=== PATIENT | female | born 1995 | race Caucasian/White ===

== ENCOUNTER 2023-05-21 07:23 | Emergency (ER) | payer OTHER, SELFPAY ==
[2023-05-21] VITALS (9 sets, daily range): BP systolic 88–117; BP diastolic 46–75; PULSE 78–114; RESP 8–18; TEMP 37.1; O2SAT 96–97; BMI 24.2
--- NOTE | 2023-05-21 07:51 | CRLHL7_ITS ---
For Patients: As a result of the Century Cures Act, medical imaging exams and procedure reports are released immediately into your electronic medical record. You may view this report before your referring provider. If you have questions, please contact your health care provider. INDICATION: Right upper quadrant pain and nausea COMPARISON: None. TECHNIQUE: Evans-scale and color ultrasound of the right upper quadrant to include the liver, gallbladder (or gallbladder fossa), biliary tree, pancreatic head, and right kidney. FINDINGS: Liver: Normal hepatic echogenicity and normal echotexture. No mass. Patent portal vein with normal directional flow. Gallbladder: Normal. Distention: Normal. Wall: Normal thickness. Stones: None. Sludge: None. Pericholecystic inflammation/fluid: None. Sonographic Hogan`s sign: Negative. Bile ducts: Not dilated. The common bile duct measures 3 mm. Pancreatic head: Normal. Right Kidney: Renal length: 10.7 cm Parenchyma: Normal thickness and normal echogenicity. Cyst: None Mass: None Calculi: None Urinary tract: Not dilated. RUQ Ascites: None. The upper abdominal aorta: Normal. Upper abdominal/intrahepatic IVC: Normal. IMPRESSION: Normal RUQ ultrasound. Dictated by Sherry Elmore MD @ 05/21/2023 8:26:28 AM (Electronically Signed)
--- NOTE | 2023-05-21 07:53 | ED_ITS ---
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 Initially pain was more crampy and colicky but now has become more constant. She vomited initially about 15 hours ago, has been unable to hold down any liquids since. Rating her pain 9/10. No prior history of similar symptoms. Pain is in the right upper quadrant, under the ribs, radiating now to the back lower ribs. No dysuria, no fever. No trauma or injury. No prior history of abdominal surgeries. Compliant with her oral contraceptive pill, menses are irregular on this. She had a negative test 2 days ago. No bloody stools or emesis. No gynecological changes. She is a bit worried of out of network costs as her insurance is through the [employer] system. Past medical history she states is benign, no major long-term health problems. Only home medication is an oral contraceptive. No history of bleeding or blood clotting disorders. No prior abdominal surgeries. ROS is notable for the abdominal symptoms as described above, otherwise denies times 12 systems. <Meseret Gonzalez MD - Last Filed: 05/30/23 00:02> Related Data Home Medications: Home Medications Medication Instructions Recorded Confirmed cotroll 1 tab PO DAILY 05/21/23 05/21/23 Previous Rx's Medication Instructions Recorded ondansetron 4 mg disintegrating 4 mg PO Q4-6H PRN nausea/vomiting 05/21/23 tablet #12 tabs <Meseret Gonzalez MD - Last Filed: 05/30/23 00:02> Allergies/Adverse Reactions: Allergies Allergy/AdvReac Type Severity Reaction Status Date / Time sulfamethoxazole Allergy Mild rash Verified 05/21/23 09:39 [From Bactrim] trimethoprim [From Bactrim] Allergy Mild rash Verified 05/21/23 09:39 <Meseret Gonzalez MD - Last Filed: 05/30/23 00:02> PFSH PFSH Social History: Social History Smoking Status: Never smoker Do you use any of these nicotine containing products: None How often do you have a drink containing alcohol: never AUDIT-C Alcohol total score: 0 <Meseret Gonzalez MD - Last Filed: 05/30/23 00:02> Exam Const: Vital Signs, click to edit/add: Vital Signs - 24 hr 05/21/23 07:27 05/21/23 08:19 05/21/23 12:00 Temperature 98.8 F Pulse Rate [Right Pulse Oximeter] 114 H 83 89 Respiratory Rate 18 8 L 18 Blood Pressure [Ri ght Upper Arm] 117/75 110/57 L Pulse Oximetry 97 96 96 Oxygen Delivery Me thod Room Air Room Air Room Air <Meseret Gonzalez MD - Last Filed: 05/30/23 00:02> Vital Signs, click to edit/add: Vital Signs - 24 hr 05/21/23 07:27 05/21/23 08:19 05/21/23 12:00 Temperature 98.8 F Pulse Rate [Right Pulse Oximeter] 114 H 83 89 Respiratory Rate 18 8 L 18 Blood Pressure [Ri ght Upper Arm] 117/75 110/57 L Pulse Oximetry 97 96 96 Oxygen Delivery Me thod Room Air Room Air Room Air <Lenin Mcbride MD - Last Filed: 05/30/23 01:26> Documenting provider has reviewed patient's vital signs: yes <Meseret Gonzalez MD - Last Filed: 05/30/23 00:02> Common normals: no apparent distress and alert <Meseret Gonzalez MD - Last Filed: 05/30/23 00:02> General appearance: cooperative and well kempt <MD Janeth Corral Last Filed: 05/30/23 00:02> Other: Appears uncomfortable due to pain. Very polite. With her background, obviously she is quite helpful and answering questions and helping form differential diagnosis. <MD Janeth Corral Last Filed: 05/30/23 00:02> HENMT: Common normals: normocephalic <MD Janeth Corral Last Filed: 05/30/23 00:02> Head and scalp: normocephalic <MD Janeth Corral Last Filed: 05/30/23 00:02> Face and sinus: normal facial exam <MD Janeth Corral Last Filed: 05/30/23 00:02> Mouth: oral and palatal mucosa normal <MD Janeth Corral Last Filed: 05/30/23 00:02> Throat: posterior oropharynx normal <MD Janeth Corral Last Filed: 05/30/23 00:02> Eye: Common normals: conjunctivae normal <MD Janeth Corral Last Filed: 05/30/23 00:02> General eye: normal appearance of both eyes <MD Janeth Corral Last Filed: 05/30/23 00:02> Conjunctiva: conjunctiva(e) normal <MD Janeth Corral Last Filed: 05/30/23 00:02> Neck & C-Spine: Common normals: full ROM and no lymphadenopathy <MD Janeth Corral Last Filed: 05/30/23 00:02> Resp: Common normals: normal respiratory effort and no use of accessory muscle s <MD Janeth Corral Last Filed: 05/30/23 00:02> Effort & inspection: able to speak in complete sentences <MD Janeth Corral Last Filed: 05/30/23 00:02> Cardio: Common normals: regular rate, regular rhythm, S1 normal heart sound, S2 normal heart sound and no murmurs <MD Janeth Corral Last Filed: 05/30/23 00:02> Rate: regular rate <MD Janeth Corral Last Filed: 05/30/23 00:02> Rhythm: regular rhythm <MD Janeth Corral Last Filed: 05/30/23 00:02> Heart sounds: S1 normal and S2 normal <MD Janeth Corral Last Filed: 05/30/23 00:02> GI: Common normals: Normal to inspection, nondistended, normoactive bowel sounds present, no hepatosplenomegaly and no masses <MD Janeth Corral Last Filed: 05/30/23 00:02> Palpation: no hepatosplenomegaly <MD Janeth Corral Last Filed: 05/30/23 00:02> Other: Exquisitely tender to right upper quadrant with even some mild rebound tenderness and guarding. Some slight peritoneal signs in the remainder of the abdomen as well. <MD Janeth Corral Last Filed: 05/30/23 00:02> Extremity: Common normals: normal to inspection <MD Janeth Corral Last Filed: 05/30/23 00:02> Neuro: Sensorium/orientation: alert <MD Janeth Corral Last Filed: 05/30/23 00:02> Speech: speech normal <MD Janeth Corral Last Filed: 05/30/23 00:02> Motor exam: no tremor noted and no movement abnormalities noted <MD Janeth Corral Last Filed: 05/30/23 00:02> Psych: Common normals: thought process normal and speech normal <MD Janeth Corral Last Filed: 05/30/23 00:02> Appearance: well kempt <MD Janeth Corral Last Filed: 05/30/23 00:02> Attitude: engaged <MD Janeth Corral Last Filed: 05/30/23 00:02> Activity/motor behavior: appropriate eye contact <MD Janeth Corral Last Filed: 05/30/23 00:02> Speech: normal speech <Meseret Gonzalez MD - Last Filed: 05/30/23 00:02> Thought process: normal thought process <Meseret Gonzalez MD - Last Filed: 05/30/23 00:02> Insight: insight good <Meseret Gonzalez MD - Last Filed: 05/30/23 00:02> Judgement: judgment good <Meseret Gonzalez MD - Last Filed: 05/30/23 00:02> Skin: Common normals: no rashes or lesions noted <Meseret Gonzalez MD - Last Filed: 05/30/23 00:02> General skin exam: no rashes or lesions noted <Meseret Gonzalez MD - Last Filed: 05/30/23 00:02> Course Course ED Course: Healthy female with abdominal pain suspicious for cholecystitis. CT exclude choledocholithiasis, biliary dyskinesia, gastritis, gastroenteritis, pancreatitis, among others. No initial signs of sepsis. She does appear to be in a fair amount of pain. I recommend placing an IV, 0.5 mg of Dilaudid, 4 mg of Zofran. Right upper quadrant ultrasound. Basic labs including lipase, comprehensive metabolic panel, CBC, CRP. Suspecting cholecystitis most likely. Will likely need surgical consult pending ultrasound findings. Will be handing over care to my in coming day shift partner. <Meseret Gonzalez MD - Last Filed: 05/30/23 00:02> Vital Signs Vital signs: Initial Vital Signs Temperature 98.8 F 05/21/23 07:27 Temperature Source Temporal Artery Scan 05/21/23 07:27 Pulse Rate 114 H 05/21/23 07:27 Respiratory Rate 18 05/21/23 07:27 Blood Pressure 117/75 05/21/23 07:27 Blood Pressure Mean 89 05/21/23 07:27 Blood Pressure Position Sitting 05/21/23 07:27 Pulse Oximetry 97 05/21/23 07:27 Oxygen Delivery Method Room Air 05/21/23 07:27 Vital Signs Temperature 98.8 F 05/21/23 07:27 Pulse Rate 114 H 05/21/23 07:27 Respiratory Rate 18 05/21/23 07:27 Blood Pressure 117/75 05/21/23 07:27 Pulse Oximetry 97 05/21/23 07:27 Oxygen Delivery Method Room Air 05/21/23 07:27 Temperature 98.8 F 05/21/23 07:27 Pulse Rate 78 05/21/23 15:00 Respiratory Rate 16 05/21/23 15:00 Blood Pressure 102/46 L 05/21/23 15:00 Pulse Oximetry 96 05/21/23 15:00 Oxygen Delivery Method Room Air 05/21/23 15:00 <Meseret Gonzalez MD - Last Filed: 05/30/23 00:02> Initial Vital Signs Temperature 98.8 F 05/21/23 07:27 Temperature Source Temporal Artery Scan 05/21/23 07:27 Pulse Rate 114 H 05/21/23 07:27 Respiratory Rate 18 05/21/23 07:27 Blood Pressure 117/75 05/21/23 07:27 Blood Pressure Mean 89 05/21/23 07:27 Blood Pressure Position Sitting 05/21/23 07:27 Pulse Oximetry 97 05/21/23 07:27 Oxygen Delivery Method Room Air 05/21/23 07:27 Vital Signs Temperature 98.8 F 05/21/23 07:27 Pulse Rate 114 H 05/21/23 07:27 Respiratory Rate 18 05/21/23 07:27 Blood Pressure 117/75 05/21/23 07:27 Pulse Oximetry 97 05/21/23 07:27 Oxygen Delivery Method Room Air 05/21/23 07:27 Temperature 98.8 F 05/21/23 07:27 Pulse Rate 78 05/21/23 15:00 Respiratory Rate 16 05/21/23 15:00 Blood Pressure 102/46 L 05/21/23 15:00 Pulse Oximetry 96 05/21/23 15:00 Oxygen Delivery Method Room Air 05/21/23 15:00 <Lenin Mcbride MD - Last Filed: 05/30/23 01:26> Medications Administered Medications: Discontinued Medications Generic Name Dose Route Start Last Admin Trade Name Anthony PRN Reason Stop Dose Admin Fentanyl 50 mcg 05/21/23 11:53 05/21/23 12:08 Fentanyl 100 Mcg/2 Ml Inj IVP 05/21/23 11:54 50 mcg ONCE ONE Administration Hydromorphone HCl 0.5 mg 05/21/23 07:51 05/21/23 08:03 Hydromorphone 0.5 Mg/0.5 Ml Inj IVP 05/21/23 07:52 0.5 mg ONCE ONE Administration Hydromorphone HCl 0.5 mg 05/21/23 08:44 05/21/23 08:48 Hydromorphone 0.5 Mg/0.5 Ml Inj IVP 05/21/23 08:45 0.5 mg ONCE ONE Administration Hyoscyamine 0.25 mg 05/21/23 11:53 05/21/23 12:08 Hyoscyamine Sulfate 0.125 Mg Tab SUBLINGUAL 05/21/23 11:54 0.25 mg ONCE ONE Administration Sodium Chloride 1,000 mls @ 1,000 mls/hr 05/21/23 07:40 05/21/23 08:49 0.9 % Sodium Chloride 1000 Ml IV 05/21/23 08:39 Infused .Q1H DICK Infusion Sodium Chloride 1,000 mls @ 1,000 mls/hr 05/21/23 13:22 05/21/23 14:40 0.9 % Sodium Chloride 1000 Ml IV 05/21/23 14:21 Infused .Q1H ONE Infusion Ketorolac Tromethamine 30 mg 05/21/23 12:29 05/21/23 12:54 Ketorolac 30 Mg/Ml Inj IVP 05/21/23 12:30 30 mg ONCE ONE Administration Lidocaine HCl 7.5 ml 05/21/23 10:55 05/21/23 11:27 Lidocaine Hcl 4 % Top Soln 50 Ml Bottle PO 05/21/23 10:56 7.5 ml ONCE ONE Administration Lidocaine/Aluminum/Magnesium/Simeth 30 ml 05/21/23 10:55 05/21/23 11:26 Mag Hydrox/Aluminum Hyd/Simeth 30 Ml Oral.Susp PO 05/21/23 10:56 30 ml ONCE ONE Administration Ondansetron HCl 4 mg 05/21/23 07:38 05/21/23 08:01 Ondansetron 2 Mg/Ml Inj IVP 05/21/23 07:39 4 mg ONCE ONE Administration <Meseret Gonzalez MD - Last Filed: 05/30/23 00:02> Discontinued Medications Generic Name Dose Route Start Last Admin Trade Name Freq PRN Reason Stop Dose Admin Fentanyl 50 mcg 05/21/23 11:53 05/21/23 12:08 Fentanyl 100 Mcg/2 Ml Inj IVP 05/21/23 11:54 50 mcg ONCE ONE Administration Hydromorphone HCl 0.5 mg 05/21/23 07:51 05/21/23 08:03 Hydromorphone 0.5 Mg/0.5 Ml Inj IVP 05/21/23 07:52 0.5 mg ONCE ONE Administration Hydromorphone HCl 0.5 mg 05/21/23 08:44 05/21/23 08:48 Hydromorphone 0.5 Mg/0.5 Ml Inj IVP 05/21/23 08:45 0.5 mg ONCE ONE Administration Hyoscyamine 0.25 mg 05/21/23 11:53 05/21/23 12:08 Hyoscyamine Sulfate 0.125 Mg Tab SUBLINGUAL 05/21/23 11:54 0.25 mg ONCE ONE Administration Sodium Chloride 1,000 mls @ 1,000 mls/hr 05/21/23 07:40 05/21/23 08:49 0.9 % Sodium Chloride 1000 Ml IV 05/21/23 08:39 Infused .Q1H DICK Infusion Sodium Chloride 1,000 mls @ 1,000 mls/hr 05/21/23 13:22 05/21/23 14:40 0.9 % Sodium Chloride 1000 Ml IV 05/21/23 14:21 Infused .Q1H ONE Infusion Ketorolac Tromethamine 30 mg 05/21/23 12:29 05/21/23 12:54 Ketorolac 30 Mg/Ml Inj IVP 05/21/23 12:30 30 mg ONCE ONE Administration Lidocaine HCl 7.5 ml 05/21/23 10:55 05/21/23 11:27 Lidocaine Hcl 4 % Top Soln 50 Ml Bottle PO 05/21/23 10:56 7.5 ml ONCE ONE Administration Lidocaine/Aluminum/Magnesium/Simeth 30 ml 05/21/23 10:55 05/21/23 11:26 Mag Hydrox/Aluminum Hyd/Simeth 30 Ml Oral.Susp PO 05/21/23 10:56 30 ml ONCE ONE Administration Ondansetron HCl 4 mg 05/21/23 07:38 05/21/23 08:01 Ondansetron 2 Mg/Ml Inj IVP 05/21/23 07:39 4 mg ONCE ONE Administration <Lenin Mcbride MD - Last Filed: 05/30/23 01:26> MDM - Abdominal Pain Medical Records Medical records narrative: Rae -- I inherited this patient at change of shift. Presenting to the emergency department complaint of epigastric pain. Limited right upper quadrant ultrasound had just been noted to be unremarkable. She had due to intensity of pain then been ordered for IV contrasted CT scan of the abdomen and pelvis. Some labs also pending CT head not yet been done. Received Zofran and Dilaudid. I went to assess in anticipation of CT scan due to escalation of pa in. Initial dosing of Dilaudid had been temporarily helpful. Given other dosing of Dilaudid. Labs are essentially normal other than elevated CRP is 6.2. Normal lipase. Normal transaminases. I did review CT imaging of the abdomen and pelvis. Thought maybe some thickening of the stomach wall in general though radiology over-read noted essentially unremarkable imaging other than a 3.5 cm right adnexal/ovarian cyst. With continued pain and normal CT imaging did try a GI cocktail. This may have made things worse. Is having pain into her back and reproducible epigastric and near right upper quadrant pain. I wonder if esophageal spasm might be related. We had discussed trial of hyoscyamine or nitro. Did ultimately give hyoscyamine and a dosing of fentanyl hoping to relax all of this. Only minor early improved on reassessment. She clearly has more pain with any movement. Worse when she is lying back and of course any transitions. Upon walking she does find herself hunching forward to lessen discomfort. Perhaps pericarditis involved?. Did not have any prodrome of gastrointestinal issues prior to all of this and was feeling fine when she went to bed last night. Recalls that with vomiting did have increase in pain. One wonders about pneumothorax or pneumomediastinum as well. Pneumomediastinum was not evident on abdominal CT imaging. Will do a dedicated one-view chest x-ray and trial of ketorolac if this is more inflammatory related pain like in the setting of pericarditis. Will also check EKG and cardiac labs as add ons. With these latter differential considerations, reproduction of pain on palpation of the epigastrium is perhaps a little puzzling. Chest x-ray by my read looks to be WNL. Normal cardiac silhouette and without pneumothorax or infiltrate. Normal mediastinum. Did request EKG. Review as below. Looks normal. Ordered with consideration of pericarditis. Normal cardiac labs. Colleague was able to place bedside ultrasound. Noting normal cardiac activity without any evidence of effusion. Upon reassessment after ketorolac, really seems to have improved. Finally appears more comfortable. See patient discharge plan <Lenin Mcbride MD - Last Filed: 05/30/23 01:26> Lab Data Attestation: I reviewed the patient's lab results. <Lenin Mcbride MD - Last Filed: 05/30/23 01:26> Labs: Lab Results 05/21/23 05/21/23 05/21/23 Range/Units 07:55 13:19 15:00 WBC 5.29 (4.50-11.00) K/uL RBC 4.72 (4.00-5.20) m/uL Hgb 13.9 (12.0-16.0) gm/dL Hct 40.4 (33.0-51.0) % MCV 86 (80-100) fL MCH 29 (26-34) pg MCHC 34 (32-36) gm/dL RDW Coeff of Elisabeth 11.8 (11.5-15.5) % Plt Count 246 (140-440) K/uL Neut % (Auto) 75.1 H (42.0-72.0) % Lymph % (Auto) 18.5 L (20-44) % [place] % (Auto) 5.3 (0.0-11.0) % Eos % (Auto) 0.9 (0.0-7.0) % Baso % (Auto) 0.2 (0.0-3.0) % Neut # (Auto) 4.00 (1.7-7.0) K/uL Lymph # (Auto) 1.00 (0.90-2.90) K/uL [place] # (Auto) 0.30 (0.00-0.90) K/UL Eos # (Auto) 0.05 (0.00-0.50) K/uL Baso # (Auto) 0.01 (0.00-0.30) K/uL Abs Immat Gran (auto) 0.00 (0.00-0.30) K/uL Imm/Tot Granulo (auto) 0.0 % D-Dimer Quant (PE/DVT) 0.67 H (0.00-0.50) ug/ml Sodium 134 L (135-149) mmol/L Potassium 3.2 L (3.6-5.1) mmol/L Chloride 106 (96-114) mmol/L Carbon Dioxide 19 L (20-32) mmol/L Anion Gap 9 (7-15) mEq/L BUN 9 (5-24) mg/dL Creatinine 0.6 (0.5-1.5) mg/dL Estimated Creat Clear 130.68 Estimated GFR 125 ml/min Glucose 97 (60-115) mg/dL Calcium 8.7 (8.4-10.6) mg/dL Total Bilirubin 0.6 (0.1-1.5) mg/dL AST 24 (12-35) U/L ALT 18 (4-35) U/L Alkaline Phosphatase 56 (40-150) U/L Troponin I < 0.01 L (0.01-0.04) ng/mL C-Reactive Protein 6.2 H (0.5-1.0) mg/dL NT-Pro-B Natriuret Pep 86 pg/mL Total Protein 6.1 (6.0-8.3) g/dL Albumin 3.7 (3.3-5.0) g/dL Lipase 34 (23-300) U/L HCG, Qual Negative (Negative) Urine Color Yellow (Yellow) Urine Appearance Slightly Cloudy A (Clear) Urine pH 5.5 (5.0-8.5) Ur Specific [place] 1.010 (1.000-1.030) Urine Protein Negative (Negative) Urine Glucose (UA) Negative (Negative) Urine Ketones 4+ A (Negative) Urine Blood Negative (Negative) Urine Nitrite Negative (Negative) Urine Bilirubin 1+ A (Negative) Urine Urobilinogen 0.2 (0.2-1.0) Ur Leukocyte Esterase Negative (Negative) Urine RBC 0-2 (0-2) Urine WBC 2-5 (0-5) Urine WBC Clumps None (None) Ur Squamous Epith Cells Few (None-Few) Urine Bacteria Few A (None) Lab Acknowledgement Test Added <Meseret Gonzalez MD - Last Filed: 05/30/23 00:02> Lab Results 05/21/23 05/21/23 05/21/23 Range/Units 07:55 13:19 15:00 WBC 5.29 (4.50-11.00) K/uL RBC 4.72 (4.00-5.20) m/uL Hgb 13.9 (12.0-16.0) gm/dL Hct 40.4 (33.0-51.0) % MCV 86 (80-100) fL MCH 29 (26-34) pg MCHC 34 (32-36) gm/dL RDW Coeff of Elisabeth 11.8 (11.5-15.5) % Plt Count 246 (140-440) K/uL Neut % (Auto) 75.1 H (42.0-72.0) % Lymph % (Auto) 18.5 L (20-44) % [place] % (Auto) 5.3 (0.0-11.0) % Eos % (Auto) 0.9 (0.0-7.0) % Baso % (Auto) 0.2 (0.0-3.0) % Neut # (Auto) 4.00 (1.7-7.0) K/uL Lymph # (Auto) 1.00 (0.90-2.90) K/uL [place] # (Auto) 0.30 (0.00-0.90) K/UL Eos # (Auto) 0.05 (0.00-0.50) K/uL Baso # (Auto) 0.01 (0.00-0.30) K/uL Abs Immat Gran (auto) 0.00 (0.00-0.30) K/uL Imm/Tot Granulo (auto) 0.0 % D-Dimer Quant (PE/DVT) 0.67 H (0.00-0.50) ug/ml Sodium 134 L (135-149) mmol/L Potassium 3.2 L (3.6-5.1) mmol/L Chloride 106 (96-114) mmol/L Carbon Dioxide 19 L (20-32) mmol/L Anion Gap 9 (7-15) mEq/L BUN 9 (5-24) mg/dL Creatinine 0.6 (0.5-1.5) mg/dL Estimated Creat Clear 130.68 Estimated GFR 125 ml/min Glucose 97 (60-115) mg/dL Calcium 8.7 (8.4-10.6) mg/dL Total Bilirubin 0.6 (0.1-1.5) mg/dL AST 24 (12-35) U/L ALT 18 (4-35) U/L Alkaline Phosphatase 56 (40-150) U/L Troponin I < 0.01 L (0.01-0.04) ng/mL C-Reactive Protein 6.2 H (0.5-1.0) mg/dL NT-Pro-B Natriuret Pep 86 pg/mL Total Protein 6.1 (6.0-8.3) g/dL Albumin 3.7 (3.3-5.0) g/dL Lipase 34 (23-300) U/L HCG, Qual Negative (Negative) Urine Color Yellow (Yellow) Urine Appearance Slightly Cloudy A (Clear) Urine pH 5.5 (5.0-8.5) Ur Specific [place] 1.010 (1.000-1.030) Urine Protein Negative (Negative) Urine Glucose (UA) Negative (Negative) Urine Ketones 4+ A (Negative) Urine Blood Negative (Negative) Urine Nitrite Negative (Negative) Urine Bilirubin 1+ A (Negative) Urine Urobilinogen 0.2 (0.2-1.0) Ur Leukocyte Esterase Negative (Negative) Urine RBC 0-2 (0-2) Urine WBC 2-5 (0-5) Urine WBC Clumps None (None) Ur Squamous Epith Cells Few (None-Few) Urine Bacteria Few A (None) Lab Acknowledgement Test Added <Lenin Mcbride MD - Last Filed: 05/30/23 01:26> ECG Data Attestation: I personally reviewed and interpreted this ECG as follows: (Normal sinus rhythm rate of 90. No acute ischemic changes/no ST elevation depression. No evidence of pericarditis) <Lenin Mcbride MD - Last Filed: 05/30/23 01:26> Discharge Plan Discharge Clinical Impression: Acute epigastric pain <Meseret Gonzalez MD - Last Filed: 05/30/23 00:02> Patient Disposition: Home w/ Parent or Adult <Meseret Gonzalez MD - Last Filed: 05/30/23 00:02> Condition: Improved <Meseret Gonzalez MD - Last Filed: 05/30/23 00:02> Instructions: Epigastric Pain (ED) <Meseret Gonzalez MD - Last Filed: 05/30/23 00:02> Additional Instructions: You seem to have some symptoms consistent with pericarditis. You also have some symptoms similar to gastritis or esophageal spasm/esophagitis. For pericarditis I would consider taking 600 mg of ibuprofen, likely with a little bit of food, 2-3 times daily over the next 5 days. Otherwise could take up to 500 mg naproxen 2 times daily. Problem with this of course is that you might irritate your stomach. May want take famotidine 20 mg twice daily over the next week or so. Slow advance diet over the next 24-36 hours. Diluted juices, soup broths, crackers, rice, toast. Return for escalating and uncontrolled pain, intractable vomiting, increasing persistent shortness of breath, worsening lightheadedness. Zofran from [facility]. <Meseret Gonzalez MD - Last Filed: 05/30/23 00:02> Prescriptions: New ondansetron 4 mg tablet,disintegrating 4 mg PO Q4-6H PRN (Reason: nausea/vomiting) Qty: 12 1RF No Action cotroll 1 tab PO DAILY <Meseret Gonzalez MD - Last Filed: 05/30/23 00:02> Follow Up/Referrals: Provider,Not a Local [Primary Care Provider] - <Meseret Gonzalez MD - Last Filed: 05/30/23 00:02> Stand Alone Forms: [facility] Info Instructions <Meseret Gonzalez MD - Last Filed: 05/30/23 00:02>
[2023-05-21] MEDS: 0.9 % SODIUM CHLORIDE 1000 ml 1,000 ML IV ×2 (08:00→13:35)
[2023-05-21] MEDS: ONDANSETRON 2 MG/ML inj 4 MG IVP (08:01)
[2023-05-21] MEDS: HYDROmorphone 0.5 mg/0.5 ml inj IVP ×2 (08:03→08:48)
[2023-05-21 08:14] LABS: Basophils Absolute Auto 0.01 K/uL (0.00-0.30); Basophils Percent Auto 0.2 % (0.0-3.0); Eosinophils Absolute Auto 0.05 K/uL (0.00-0.50); Eosinophils Percent Auto 0.9 % (0.0-7.0); Hematocrit 40.4 % (33.0-51.0); Hemoglobin* 13.9 gm/dL (12.0-16.0); Lymphocytes Percent Auto 18.5 % (20-44); Mean Corpuscular HGB Conc 34 gm/dL (32-36); Mean Corpuscular Hemoglobin 29 pg (26-34); Mean Corpuscular Volume 86 fL (80-100); Monocytes Percent Auto 5.3 % (0.0-11.0); Neutrophils Percent Auto 75.1 % (42.0-72.0); Platelet Count* 246 K/uL (140-440); RDW Coefficient of Variation % 11.8 % (11.5-15.5); Red Blood Count 4.72 m/uL (4.00-5.20); White Blood Count* 5.29 K/uL (4.50-11.00)
--- NOTE | 2023-05-21 08:18 | CRLHL7_ITS ---
For Patients: As a result of the Century Cures Act, medical imaging exams and procedure reports are released immediately into your electronic medical record. You may view this report before your referring provider. If you have questions, please contact your health care provider. INDICATION: RUQ PAIN TECHNIQUE: CT abdomen and pelvis acquired with 74 cc Isovue 370 IV contrast. COMPARISON: Right upper quadrant ultrasound 05/21/2023 FINDINGS: Lower chest: Unremarkable. Liver: Unremarkable. Normal in size and attenuation. No suspicious masses. Gallbladder and bile ducts: Unremarkable. No stones or inflammation. No biliary dilatation. Pancreas: Unremarkable. No mass or inflammation. Spleen: Unremarkable. Normal in size. No masses. Adrenal glands: Unremarkable. No nodules. Kidneys: Unremarkable. No suspicious masses, stones, or hydronephrosis. GI tract: Unremarkable. Normal in caliber. No sign of mass or inflammation. The appendix is not discretely visualized; however, there are no definitive inflammatory changes in the right lower quadrant to suggest acute appendicitis. Vasculature: Abdominal aorta is normal in caliber. Mesenteric arteries are patent. Lymph nodes: No lymphadenopathy. Peritoneum/Abdominal Wall: Unremarkable. No sign of mass or infiltration. No free air or significant free fluid. Trace free fluid in the pelvis, likely physiologic. Pelvis: Heterogeneous enhancement of the retroverted uterus without discretely visualized mass or lesion. The endometrium is not well evaluated on this exam. Simple appearing right ovarian/adnexal cyst measuring approximately 3.5 centimeters. Bones: Unremarkable for age. IMPRESSION: No CT evidence of an acute process involving the abdomen or pelvis. Please note that all CT scans at this facility use dose modulation, iterative reconstruction, and/or weight-based dosing when appropriate to reduce radiation dose to as low as reasonably achievable. Dictated by Jesus Garcia MD @ 05/21/2023 10:28:08 AM (Electronically Signed)
[2023-05-21 08:24] LABS: Slide Review Reflex No
[2023-05-21 08:35] LABS: HCG Qualitative Serum* Negative (Negative)
[2023-05-21 08:36] LABS: Albumin* 3.7 g/dL (3.3-5.0); Chloride* 106 mmol/L (96-114); Sodium* 134 mmol/L (135-149)
[2023-05-21 08:37] LABS: Potassium* 3.2 mmol/L (3.6-5.1)
[2023-05-21 08:39] LABS: Creatinine* 0.6 mg/dL (0.5-1.5); Est. Creatinine Clearance* 130.68; Estimated Glomerular Filt Rate 125 ml/min
[2023-05-21 08:40] LABS: Alanine Aminotransferase* 18 U/L (4-35); Alkaline Phosphatase* 56 U/L (40-150); Anion Gap 9 mEq/L (7-15); Aspartate Amino Transferase* 24 U/L (12-35); Bilirubin Total* 0.6 mg/dL (0.1-1.5); Blood Urea Nitrogen* 9 mg/dL (5-24); Calcium* 8.7 mg/dL (8.4-10.6); Carbon Dioxide* 19 mmol/L (20-32); Glucose* 97 mg/dL (60-115); Lipase* 34 U/L (23-300); Total Protein* 6.1 g/dL (6.0-8.3)
[2023-05-21 08:42] LABS: C Reactive Protein* 6.2 mg/dL (0.5-1.0)
[2023-05-21] MEDS: MAG HYDROX/ALUMINUM HYD/SIMETH 30 ML ORAL.SUSP PO (11:26)
[2023-05-21] MEDS: lidocaine HCL 4 % TOP SOLN 50 ML BOTTLE 7.5 ML PO (11:27)
[2023-05-21] MEDS: fentaNYL 100 MCG/2 ML inj 50 MCG IVP (12:08)
[2023-05-21] MEDS: HYOSCYAMINE SULFATE 0.125 MG TAB 0.25 MG SUBLINGUAL (12:08)
--- NOTE | 2023-05-21 12:29 | CRLHL7_ITS ---
For Patients: As a result of the Century Cures Act, medical imaging exams and procedure reports are released immediately into your electronic medical record. You may view this report before your referring provider. If you have questions, please contact your health care provider. INDICATION: Epigastric pain. Low sternal pain. Question pneumonia, pericarditis.. TECHNIQUE: Chest 1 views. COMPARISON: None. FINDINGS: Cardiovasculature and mediastinum: Heart size and vasculature are normal in caliber and appearance. Lungs and pleural spaces: Lungs are clear. No sign of infiltrate or mass. No sign of pleural effusion. No pneumothorax. Bones and soft tissues: No significant findings. IMPRESSION: No acute or significant findings. Dictated by Joaquim Banda MD @ 05/21/2023 1:13:02 PM (Electronically Signed)
[2023-05-21] MEDS: KETOROLAC 30 MG/ML inj IVP (12:54)
--- NOTE | 2023-05-21 13:09 | ED.NURSE ---
patient is noticed when sitting up for CXR painful and was difficult to do as pain increased with positioning. EKG done. Given Toradol 30 mg IVP now.
--- NOTE | 2023-05-21 13:36 | ED.NURSE ---
patient is feeling better and rated pain at 3/10 scale. hung 2nd liter of fluids and infusing. is at the bedside.
[2023-05-21 13:46] LABS: NT Pro B Type NatriureticPept* 86 pg/mL; Troponin I* < 0.01 ng/mL (0.01-0.04)
[2023-05-21 14:05] LABS: D Dimer Quantitative* 0.67 ug/ml (0.00-0.50)
--- NOTE | 2023-05-21 15:06 | ED.NURSE ---
Given apple juice and crackers to eat and will see how tolerates. patient is sitting up and looks much more comfortable.
[2023-05-21 15:11] LABS: Appearance Urine Slightly Cloudy (Clear); Bilirubin Urine 1+ (Negative); Blood Urine Negative (Negative); Color Urine Yellow (Yellow); Glucose Urine Negative (Negative); Ketones Urine 4+ (Negative); Leukocyte Esterase Urine Negative (Negative); Nitrite Urine Negative (Negative); Protein Urine Negative (Negative); Urobilinogen Urine 0.2 (0.2-1.0); pH Urine 5.5 (5.0-8.5)
[2023-05-21 15:31] LABS: Bacteria Urine Few; RBC Urine 0-2 (0-2); Squamous Epithelial Cell Urine Few (None-Few)
== END 2023-05-21 15:32 | disposition home or self-care (01) ==
PROVIDERS: Family Medicine; Emergency Provider Family Medicine
DX: R10.13 Epigastric pain (principal)
CPT/HCPCS: 36415; 71045; 74177; 76705; 80053; 81003; 81015; 81025; 83690; 83880; 84484; 84703; 85025; 85379; 86140; 87086; 93005; 96361; 96374; 96375; 99284; 99285; A9270; J1170; J1885; J2405; J3010; J7030; Q9967